=== PATIENT | male | born 1945 | race Caucasian/White ===

== ENCOUNTER → 2022-05-29 | Outpatient (CLI) | payer MEDICARE ==
--- NOTE | 2022-05-29 14:01 | XR ---
EXAMINATION TYPE: XR tibia fibula LT DATE OF EXAM: 05/29/2022 COMPARISON: NONE HISTORY: Pain TECHNIQUE: Two views are submitted. FINDINGS: The osseous structures are intact. The joint spaces are preserved. There is soft tissue ossificatio ns or reversible arthropathy of the medial compartment knee joint and patellofemoral joint compatible severe osteoarthritis. There is soft tissue calcifications. There is linear increased density overly ing the proximal tibia which appears posterior on the lateral view likely secondary to superimposed s tructures.. IMPRESSION: 1. No acute fracture. 2. There is severe osteoarthritis of the knee. 3. There is arthropathy of the ankle mortise. 4. There is a large soft tissue ossification in the suprapatellar bursa. Recommend dedicated knee ser ies. Alternatively, this could be followed with MRI as clinically warranted..
== END | disposition home or self-care (01) ==
LOC: RADXRYALE 13:14
PROVIDERS: ATTEND Internal Medicine
DX: M17.12 Unilateral primary osteoarthritis, left knee (principal); M79.605 Pain in left leg

== ENCOUNTER 2024-07-02 11:37 | Emergency (ER) | payer MEDICARE ==
[2024-07-02 11:57] VITALS: RESP 18; TEMP 97.7
--- NOTE | 2024-07-02 12:17 | ED ---
General Adult HPI - General Source: patient, RN notes reviewed Mode of arrival: wheelchair Limitations: no limitations <Ester Crow - Last Filed: 07/02/24 12:32> - General Source: patient, RN notes reviewed Mode of arrival: wheelchair Limitations: no limitations <Man Esteban - Last Filed: 07/02/24 15:45> - General Chief complaint: Skin/Abscess/Foreign Body Stated complaint: Urogenital Time Seen by Provider: 07/02/24 11:55 - History of Present Illness Initial comments: Quick Note: This is a 78-year-old male who presents to the emergency department for problems with urine. Patient is on dialysis Friday, Friday, and Friday. He was supposed to have dialysis this morning, but they alerted the dialysis clinic that he started to urinate fluorescent urine, and he was advised to come here instead. States that this started about a week ago but was not as severe. Denies any history of similar problems in the past. Not taking any new medications. (Ester Crow) - Related Data Previous Rx's Medication Instructions Recorded Nystatin 100,000Unit/gm Cream 1 applic TOPICAL BID #30 gram 07/02/24 [Mycostatin Cream] Allergies Allergy/AdvReac Type Severity Reaction Status Date / Time No Known Allergies Allergy Verified 07/02/24 11:52 Review of Systems ROS Other: All systems not noted in ROS Statement are negative. <Ester Crow - Last Filed: 07/02/24 12:32> ROS Other: All systems not noted in ROS Statement are negative. <Man Esteban - Last Filed: 07/02/24 15:45> ROS Statement: Those systems with pertinent positive or pertinent negative responses have been documented in the HPI. Past Medical History Past Medical History: Dialysis, Hypertension History of Any Multi-Drug Resistant Organisms: None Reported Past Surgical History: Heart Catheterization With Stent, Hernia Repair, Joint Replacement, Orthopedic Surgery Additional Past Surgical History / Comment(s): 3 heart stents, left arm reattachement. Past Psychological History: No Psychological Hx Reported Smoking Status: Former smoker Past Alcohol Use History: None Reported Past Drug Use History: None Reported <Ester Crow - Last Filed: 07/02/24 12:32> General Exam Limitations: no limitations <Ester Crow - Last Filed: 07/02/24 12:32> - General Exam Comments Initial Comments: Visual Physical Exam Vital signs reviewed General: Well-appearing, nontoxic, no acute distress. Head: Normocephalic, atraumatic Eyes: PERRLA, EOMI ENT: Airway patent Chest: Nonlabored breathing Skin: No visual rash, normal skin tone Neuro: Alert and oriented 3 Musculoskeletal: No gross abnormalities (Ester Crow) Course Vital Signs 07/02/24 11:52 Temperature 97.7 F Pulse Rate 60 Respiratory 18 Rate Blood Pressure 126/55 O2 Sat by Pulse 99 Oximetry Medical Decision Making <Ester Crow - Last Filed: 07/02/24 12:32> - Lab Data Result diagrams: 07/02/24 12:52 07/02/24 12:52 <Man Esteban - Last Filed: 07/02/24 15:45> - Medical Decision Making I performed the QuickNote portion of this chart. Signed Ester Crow PA-C. (Ester Crow) Was pt. sent in by a medical professional or institution ([facility] Solares, MARKETING PRODUCTION SPECIALIST, urgent care, hospital, or care home...) When possible be specific @ -[No] Did you speak to anyone other than the patient for history (EMS, parent, family, police, friend...)? What history was obtained from this source @ -[No] Did you review nursing and triage notes (agree or disagree)? Why? @ -[I reviewed and agree with nursing and triage notes] Were old charts reviewed (outside hosp., previous admission, EMS record, old EKG, old radiological studies, urgent care reports/EKG's, care home records)? Report findings @ -[No old charts were reviewed] Differential Diagnosis (chest pain, altered mental status, abdominal pain women, abdominal pain men, vaginal bleeding, weakness, fever, dyspnea, syncope, headache, dizziness, GI bleed, back pain, seizure, CVA, palpatations, mental health, musculoskeletal)? @ -[not applicable] EKG interpreted by me (3pts min.). @ -Sinus rhythm with left axis deviation and QT prolongation. Inverted T waves noted in lead III and aVF with no previous EKG to compare to. No other ST changes or T wave inversion. Ventricular rate 60 bpm, JESSICA 189 ms, QRS duration 133 ms, QTc 458 ms. X-rays interpreted by me (1pt min.). @ -Chest x-ray shows no cardiomegaly, focal infiltrates, pulmonary edema or pneumothorax CT interpreted by me (1pt min.). @ -[None done] U/S interpreted by me (1pt. min.). @ -[None done] What testing was considered but not performed or refused? (CT, X-rays, U/S, labs)? Why? @ -[None] What meds were considered but not given or refused? Why? @ -[None] Did you discuss the management of the patient with other professionals (professionals i.e. , PA, MARKETING PRODUCTION SPECIALIST, lab, RT, psych nurse, social secretary, barge master, teacher, restoration officer, leather case finisher)? Give summary @ -[No] Was smoking cessation discussed for >3mins.? @ -[No] Was critical care preformed (if so, how long)? @ -[No] Were there social determinants of health that impacted care today? How? (Homelessness, low income, unemployed, alcoholism, drug addiction, transportation, low edu. Level, literacy, decrease access to med. care, skilled nursing, rehab)? @ -[No] Was there de-escalation of care discussed even if they declined (Discuss DNR or withdrawal of care, Hospice)? DNR status @ -[No] What co-morbidities impacted this encounter? (DM, HTN, Smoking, COPD, CAD, Cancer, CVA, ARF, Chemo, Hep., AIDS, mental health diagnosis, sleep apnea, morbid obesity)? @ -[None] Was patient admitted / discharged? Hospital course, mention meds given and route, prescriptions, significant lab abnormalities, going to OR and other pertinent info. @ -[hospital course] Undiagnosed new problem with uncertain prognosis? @ -[No] Drug Therapy requiring intensive monitoring for toxicity (Heparin, Nitro, Insulin, Cardizem)? @ -[No] Were any procedures done? @ -[No] Diagnosis/symptom? @ -[default] Acute, or Chronic, or Acute on Chronic? @ -Acute Uncomplicated (without systemic symptoms) or Complicated (systemic symptoms)? @ -Complicated Side effects of treatment? @ -[No] Exacerbation, Progression, or Severe Exacerbation? @ -[No] Poses a threat to life or bodily function? How? (Chest pain, USA, ID, pneumonia, PE, COPD, DKA, ARF, appy, cholecystitis, CVA, Diverticulitis, Homicidal, Suicidal, threat to staff... and all critical care pts) @ -[No] (Man Estbean) - Lab Data Lab Results 07/02/24 07/02/24 07/02/24 Range/Units 12:52 12:52 12:52 WBC 10.4 (3.8-10.6) k/uL RBC 2.78 L (4.30-5.90) m/uL Hgb 9.3 L (13.0-17.5) gm/dL Hct 27.4 L (39.0-53.0) % MCV 98.5 (80.0-100.0) fL MCH 33.4 (25.0-35.0) pg MCHC 33.9 (31.0-37.0) g/dL RDW 11.9 (11.5-15.5) % Plt Count 168 (150-450) k/uL MPV 7.8 Neutrophils % 67 % Lymphocytes % 17 % Monocytes % 8 % Eosinophils % 7 % Basophils % 1 % Neutrophils # 6.9 (1.3-7.7) k/uL Lymphocytes # 1.8 (1.0-4.8) k/uL Monocytes # 0.8 (0-1.0) k/uL Eosinophils # 0.7 (0-0.7) k/uL Basophils # 0.1 (0-0.2) k/uL Sodium 136 L (137-145) mmol/L Potassium 5.4 H (3.5-5.1) mmol/L Chloride 97 L (98-107) mmol/L Carbon Dioxide 24 (22-30) mmol/L Anion Gap 15 mmol/L BUN 77 H (9-20) mg/dL Creatinine 10.17 H* (0.66-1.25) mg/dL Est GFR (CKD-EPI)AfAm 5 (>60 ml/min/1.73 sqM) Est GFR (CKD-EPI)NonAf 4 (>60 ml/min/1.73 sqM) Glucose 96 (74-99) mg/dL Plasma Lactic Acid Dany (0.7-2.0) mmol/L Calcium 8.6 (8.4-10.2) mg/dL Phosphorus 6.9 H (2.5-4.5) mg/dL Magnesium 2.0 (1.6-2.3) mg/dL Total Bilirubin 0.6 (0.2-1.3) mg/dL AST 26 (17-59) U/L ALT 26 (4-49) U/L Alkaline Phosphatase 96 (38-126) U/L Total Protein 7.1 (6.3-8.2) g/dL Albumin 4.5 (3.5-5.0) g/dL Urine Color Colorless Urine Appearance Cloudy (Clear) Urine pH 8.0 (5.0-8.0) Ur Specific Anderson 1.009 (1.001-1.035) Urine Protein 2+ H (Negative) Urine Glucose (UA) 1+ H (Negative) Urine Ketones Negative (Negative) Urine Blood Small H (Negative) Urine Nitrite Negative (Negative) Urine Bilirubin Negative (Negative) Urine Urobilinogen <2.0 (<2.0) mg/dL Ur Leukocyte Esterase Small H (Negative) Urine RBC 1 (0-5) /hpf Urine WBC 20 H (0-5) /hpf Ur Squamous Epith Cells 2 (0-4) /hpf 07/02/24 Range/Units 12:52 WBC (3.8-10.6) k/uL RBC (4.30-5.90) m/uL Hgb (13.0-17.5) gm/dL Hct (39.0-53.0) % MCV (80.0-100.0) fL MCH (25.0-35.0) pg MCHC (31.0-37.0) g/dL RDW (11.5-15.5) % Plt Count (150-450) k/uL MPV Neutrophils % % Lymphocytes % % Monocytes % % Eosinophils % % Basophils % % Neutrophils # (1.3-7.7) k/uL Lymphocytes # (1.0-4.8) k/uL Monocytes # (0-1.0) k/uL Eosinophils # (0-0.7) k/uL Basophils # (0-0.2) k/uL Sodium (137-145) mmol/L Potassium (3.5-5.1) mmol/L Chloride (98-107) mmol/L Carbon Dioxide (22-30) mmol/L Anion Gap mmol/L BUN (9-20) mg/dL Creatinine (0.66-1.25) mg/dL Est GFR (CKD-EPI)AfAm (>60 ml/min/1.73 sqM) Est GFR (CKD-EPI)NonAf (>60 ml/min/1.73 sqM) Glucose (74-99) mg/dL Plasma Lactic Acid Dany 1.6 (0.7-2.0) mmol/L Calcium (8.4-10.2) mg/dL Phosphorus (2.5-4.5) mg/dL Magnesium (1.6-2.3) mg/dL Total Bilirubin (0.2-1.3) mg/dL AST (17-59) U/L ALT (4-49) U/L Alkaline Phosphatase (38-126) U/L Total Protein (6.3-8.2) g/dL Albumin (3.5-5.0) g/dL Urine Color Urine Appearance (Clear) Urine pH (5.0-8.0) Ur Specific Anderson (1.001-1.035) Urine Protein (Negative) Urine Glucose (UA) (Negative) Urine Ketones (Negative) Urine Blood (Negative) Urine Nitrite (Negative) Urine Bilirubin (Negative) Urine Urobilinogen (<2.0) mg/dL Ur Leukocyte Esterase (Negative) Urine RBC (0-5) /hpf Urine WBC (0-5) /hpf Ur Squamous Epith Cells (0-4) /hpf Disposition <Ester Crow - Last Filed: 07/02/24 12:32> Is patient prescribed a controlled substance at d/c from ED?: No Time of Disposition: 15:43 <Man Esteban - Last Filed: 07/02/24 15:45> Clinical Impression: Urinary incontinence, Irritant contact dermatitis Disposition: HOME SELF-CARE Condition: Good Instructions (If sedation given, give patient instructions): Diaper Rash (ED), Urinary Incontinence (ED) Additional Instructions: Use observable undergarments and change frequently. Keep area clean with antibacterial soap and water. Allow to air dry when possible. Use nystatin cream as directed. Follow-up with urology Prescriptions: Nystatin 100,000Unit/gm Cream [Mycostatin Cream] 1 applic TOPICAL BID #30 gram Referrals: None,Stated [Primary Care Provider] - 1-2 days Santos Silvestre MD [STAFF PHYSICIAN] - 1-2 days
--- NOTE | 2024-07-02 13:47 | XR ---
EXAMINATION TYPE: XR chest 2V DATE OF EXAM: 07/02/2024 1:39 PM COMPARISON: None CLINICAL INDICATION: Male, 78 years old with history of Cardiac history, lower extremity edema, hypot ensi; [facility] TECHNIQUE: XR chest 2V Frontal and lateral views of the chest. FINDINGS: Lungs/Pleura: There is no evidence of pleural effusion, focal consolidation, or pneumothorax. Pulmonary vascularity: Unremarkable. Heart/mediastinum: Cardiomediastinal silhouette is unremarkable. Musculoskeletal: No acute osseous pathology. Fixation hardware in left proximal shoulder appears inta ct. Other findings: None Right central venous catheter with tip in appropriate position. IMPRESSION: 1. No acute cardiopulmonary disease/process. 2. Right central venous catheter with tip in appropriate position. [facility], , 07/02/2024 1:45 PM
[2024-07-02 14:00] LABS: Basophils # (A) 0.1 k/uL (0-0.2); Basophils % (A) 1 %; Eosinophils # (A) 0.7 k/uL (0-0.7); Eosinophils % (A) 7 %; HCT 27.4 % (39.0-53.0); HGB 9.3 gm/dL (13.0-17.5); Lymphocytes # (A) 1.8 k/uL (1.0-4.8); Lymphocytes % (A) 17 %; MCH 33.4 pg (25.0-35.0); MCHC 33.9 g/dL (31.0-37.0); MCV 98.5 fL (80.0-100.0); Mean Platelet Volume 7.8; Monocytes # (A) 0.8 k/uL (0-1.0); Monocytes % (A) 8 %; Neutrophils # (A) 6.9 k/uL (1.3-7.7); Neutrophils % (A) 67 %; Platelet Count 168 k/uL (150-450); RBC 2.78 m/uL (4.30-5.90); RDW 11.9 % (11.5-15.5); WBC 10.4 k/uL (3.8-10.6)
[2024-07-02 14:14] LABS: Appearance,Urine Cloudy (Clear); Bilirubin,Urine Negative (Negative); Blood,Urine Small (Negative); Color,Urine Colorless; Glucose,Urine (UA) 1+ (Negative); Ketones,Urine Negative (Negative); Leukocyte Esterase,Urine Small (Negative); Nitrite,Urine Negative (Negative); Protein,Urine 2+ (Negative); RBC,Urine 1 /hpf (0-5); Specific Gravity,Urine 1.009 (1.001-1.035); Squamous Epithelial Cell,Urine 2 /hpf (0-4); Urobilinogen,Urine <2.0 mg/dL (<2.0); WBC,Urine 20 /hpf (0-5)
[2024-07-02 14:27] LABS: ALT 26 U/L (4-49); AST 26 U/L (17-59); African American GFR (CKD) 5 (>60 ml/min/1.73 sqM); Albumin 4.5 g/dL (3.5-5.0); Alkaline Phosphatase 96 U/L (38-126); Anion Gap 15 mmol/L; Blood Urea Nitrogen 77 mg/dL (9-20); Calcium 8.6 mg/dL (8.4-10.2); Carbon Dioxide 24 mmol/L (22-30); Chloride 97 mmol/L (98-107); Glucose 96 mg/dL (74-99); Non-African American GFR(CKD) 4 (>60 ml/min/1.73 sqM); Phosphorus 6.9 mg/dL (2.5-4.5); Potassium 5.4 mmol/L (3.5-5.1); Sodium 136 mmol/L (137-145); Total Bilirubin 0.6 mg/dL (0.2-1.3); Total Protein 7.1 g/dL (6.3-8.2)
[2024-07-02] MEDS: NYSTATIN 100,000 UNIT/GM OINT 30 GM TUBE TOPICAL STA (15:53)
[2024-07-02 16:04] VITALS: BP 147/79; PULSE 75
[2024-07-02 16:16] LABS: Partial Thromboplastin Time 23.7 sec (22.0-30.0); Prothrombin Time 10.7 sec (10.0-12.5)
== END 2024-07-02 16:04 | disposition home or self-care (01) ==
LOC: EC 11:37
DX: R32 Unspecified urinary incontinence (principal); L24.9 Irritant contact dermatitis, unspecified cause; Z87.891 Personal history of nicotine dependence; Z99.2 Dependence on renal dialysis
CPT/HCPCS: 36415; 71046; 80053; 81001; 83605; 83735; 84100; 85025; 85610; 85730; 87086; 93005; 99284